=== PATIENT | female | born 1990 | race Two or more races ===

== ENCOUNTER 2025-07-07 11:01 | Emergency (ER) | payer OTHER ==
[~2025-07-07] VITALS: Ht 167.6 cm; Wt 66.7 kg
[2025-07-07 11:23] VITALS: TEMP 98.1
[2025-07-07] MEDS: IV NS 0.9% 500 ML BAG IV ONE (11:45)
[2025-07-07] MEDS ORDERED: ONDANSETRON HCL/PF 4 MG/2 ML VIAL ONE (12:00)
[2025-07-07] MEDS ORDERED: KETOROLAC TROMETHAMINE INJ 30 MG/ML VIAL ONE (12:00)
[2025-07-07 12:01] LABS: ASPARTATE AMINOTRANSFERASE 46.0 U/L (15-37); CALCIUM, SERUM 9.1 mg/dL (8.5-10.1); CREATININE 0.7 mg/dL (0.6-1.3); SODIUM SERUM 139.0 mmol/L (136-145); TOTAL PROTEIN, SERUM 7.4 g/dL (6.4-8.2); UREA NITROGEN, BLOOD 11.0 mg/dL (7-18)
[2025-07-07] MEDS: ONDANSETRON HCL/PF 4 MG/2 ML VIAL IVP ONE (12:04)
[2025-07-07] MEDS: KETOROLAC TROMETHAMINE 15 MG/ML VIAL IV ONE (12:10)
[2025-07-07 12:21] LABS: PLATELET COUNT (AUTO) 299 K/uL (150-450); RED BLOOD CELL COUNT(AUTO) 4.36 MIL/uL (4.0-5.2); RED CELL DISTRIBUTION WIDTH 12.3 % (11.5-15.0); WHITE BLOOD COUNT (AUTO) 5.1 K/uL (4.3-11.0)
[2025-07-07 12:26] LABS: APPEARANCE,URINE CLEAR (CLEAR); BLOOD, URINE 2+ Ery/uL (NEGATIVE); LEUKOCYTE ESTERASE ,URINE NEGATIVE (NEGATIVE); NITRITE, URINE NEGATIVE (NEGATIVE); UGLUCOSE NEGATIVE (NEGATIVE)
[2025-07-07 12:27] LABS: PREGNANCY TEST URINE QUAL NEGATIVE (NEGATIVE)
[2025-07-07 12:44] LABS: ADD URINE CULTURE NO; SQUAMOUS EPITHELIAL CELL,UR 0-2 /HPF (None Seen)
[2025-07-07] MEDS ORDERED: IBUP-1957 PO (13:05)
[2025-07-07] MEDS ORDERED: OXYC-128 PO (13:05)
[2025-07-07 14:10] VITALS: BP 91/50; O2SAT 99
== END 2025-07-07 13:25 | disposition home or self-care (01) ==
LOC: ER 11:10
DX: N13.2 Hydronephrosis with renal and ureteral calculous obstruction (principal)
CPT/HCPCS: 99285; 74176; 96374; 85025; 80048; 83690; 80076; 84703; 81001; 36415; J1885; J2405

== ENCOUNTER 2025-07-07 19:51 | Emergency (ER) | payer OTHER ==
[~2025-07-07 19:51] MED LIST: IBUP-1957 PO; OXYC-128 PO
== END 2025-07-07 21:36 | disposition left against medical advice (07) ==
LOC: ER 20:00
DX: N20.0 Calculus of kidney (principal); Z53.21 Procedure and treatment not carried out due to patient leaving prior to being seen by health care provider